=== PATIENT | male | born 1970 | race Caucasian/White ===

== ENCOUNTER 2020-12-11 16:20 | Emergency (ER) | payer BC ==
[2020-12-11] MEDS ORDERED: Ibuprofen 600 MG Tab PO ONE (19:24)
[2020-12-11] MEDS ORDERED: Amoxicillin 500 MG Cap PO ONE (19:24)
--- NOTE | 2020-12-11 19:28 | EDM.PDOC ---
ED HPI GENERAL MEDICAL PROBLEM - General Chief Complaint: ENT Problem Stated Complaint: TOOTH INFECTION Time Seen by Provider: 12/11/20 19:15 Source of Information: Reports: Patient, RN History Limitations: Reports: No Limitations - History of Present Illness INITIAL COMMENTS - FREE TEXT/NARRATIVE: Left upper dental infection, reports pain swelling started this am. Ibuprofen 80 0 8am today. Denies fever or chills. No recent dental visit. Admits poor dental care and remote hx of meth use. Left Upper Jaw Pain Score (Numeric/FACES): 8 - Related Data Allergies Allergy/AdvReac Type Severity Reaction Status Date / Time No Known Allergies Allergy Verified 12/11/20 17:04 Home Meds: Home Meds . [No Known Home Meds] 12/11/20 [History] Past Medical History - Past Health History Medical/Surgical History: Denies Medical/Surgical History Social & Family History - Tobacco Use Tobacco Use Status *Q: Current Every Day Tobacco User Years of Tobacco use: 38 Packs/Tins Daily: 1 - Caffeine Use Caffeine Use: Reports: Coffee, Energy Drinks, Soda - Recreational Drug Use Recreational Drug Use: No ED ROS ENT - Review of Systems Review Of Systems: Comprehensive ROS is negative, except as noted in HPI. ED EXAM, ENT - Physical Exam Exam: See Below Exam Limited By: No Limitations General Appearance: Alert, Mild Distress Eye Exam: Bilateral Eye: EOMI Ears: Normal External Exam, Hearing Grossly Normal Nose: Normal Inspection Mouth/Throat: Dental Abcess, Dental Pain, Dental Tenderness (left upper incisor), Gum Swelling (left upper), Other (general poor dentation, multiple areas of decay upper and lower). No: Normal Teeth Head: Atraumatic, Normocephalic, Facial Tenderness (left upper left lip maxilla) Neck: Normal Inspection, Full Range of Motion. No: Lymphadenopathy (R), Tender Lateral Respiratory/Chest: No Respiratory Distress, Lungs Clear Cardiovascular: Regular Rate, Rhythm GI/Abdominal: Soft Neurological: Alert, Oriented, Normal Cognition Psychiatric: Other (agitatied) Skin: Warm, Dry, Intact, Normal Color Course - Vital Signs Last Recorded V/S: Last Vital Signs Temp 98.3 F 12/11/20 16:58 Pulse 69 12/11/20 16:58 Resp 12 12/11/20 16:58 BP 108/79 09/21/21 16:58 Pulse Ox 95 12/11/20 16:58 Departure - Departure Time of Disposition: 19:29 Disposition: Home, Self-Care 01 Condition: Good Clinical Impression: Dental abscess, Dental caries - Discharge Information Instructions: Dental Abscess, [id number] Forms: ED Department Discharge Additional Instructions: alternate tylenol 500mg and ibuprofen 600mg every 4 hours as needed for discomfort soft food chew on opposite side avoid liquids with extreme temperatures amoxicillin 500mg 3 times daily for 10 days follow with dentist Sepsis Event Note (ED) - Focused Exam Vital Signs: Vital Signs Temp Pulse Resp BP Pulse Ox 12/11/20 16:58 98.3 F 69 12 108/79 95
== END 2020-12-11 19:42 | disposition home or self-care (01) ==
LOC: DL.ED 16:20
DX: K04.7 Periapical abscess without sinus (principal); K02.9 Dental caries, unspecified; Z72.0 Tobacco use
CPT/HCPCS: 99282; A9270